=== PATIENT | female | born 1995 | race Caucasian/White ===

== ENCOUNTER 2016-12-01 00:20 | Emergency (ER) | payer MEDICAID ==
[~2016-12-01] VITALS: Ht 162.6 cm; Wt 55.0 kg
[2016-12-01 00:22] VITALS: BP 128/69; PULSE 60; RESP 12; TEMP 98.7; O2SAT 100
[2016-12-01] MEDS ORDERED: ADDE30XR PO (00:22)
--- NOTE | 2016-12-01 01:04 | PD ---
HPI Chief Complaint: Facial Pain or Swelling Time Seen by Provider: 00:42 Travel History International Travel<30 days: No Contact w/Intl Traveler<30days: No Traveled to known affect area: No History of Present Illness HPI The patient is a 21 year old female who presents to the [facility] emergency department with a history of reportedly having lip injections done for lip enhancement with lip filler by Dr. Herrera, a local surgeon, at 1:30 PM yesterday. The patient reports that at approximately 3:30 PM the swelling seemed to be getting much worse. She reports that she continue to monitor it throughout the day and the swelling was progressing, therefore she decided to come to the emergency department. She denies having any tongue or throat swelling. She denies having any chest tightness or shortness of breath. She denies having any rashes or itching. She denies having any abdominal pain or cramping. She denies ever getting lip injections previously. She denies taking any [id number] medications after the procedure. A review of systems, the patient denies any recent fevers, cough, congestion, neck pain, chest pain, shortness of breath, abdominal pain, vomiting, diarrhea, urinary symptoms, or neurologic symptoms. [facility] Past Medical History Narrative Medical The patient's past medical history is significant for attention deficit hyperactivity disorder. Medical History: Denies Significant Hx Immunizations Current: Yes ?: Not LMP: 11/17/16 Past Surgical History Narrative Surgical The patient's past surgical history is reportedly none. Surgical History: No Previous Surgery Social History Alcohol Use: No Tobacco Use: No Substance Use: No Allergies-Medications (Allergen,Severity, Reaction): Coded Allergies: No Known Allergies (Unverified , 12/01/16) Reported Meds & Prescriptions Reported Meds & Active Scripts Active Reported Adderall Xr 24 HR (Amphetamine/Dextroamphetamine) 30 Mg Cap 30 Mg PO DAILY Once daily in the morning. Review of Systems Except as stated in HPI: all other systems reviewed are Neg General / Constitutional: No: Fever Eyes: No: Visual changes HENT: Positive: Other (lip swelling), No: Headaches Cardiovascular: No: Chest Pain or Discomfort Respiratory: No: Shortness of Breath Gastrointestinal: No: Abdominal Pain Genitourinary: No: Dysuria Musculoskeletal: No: Pain Skin: No Rash Neurologic: No: Weakness Psychiatric: No: Depression Endocrine: No: Polydipsia Hematologic/Lymphatic: No: Easy Bruising Physical Exam Narrative General: The patient is a well-developed well-nourished female in no acute distress. Head and Neck exam: Head is normocephalic atraumatic. Eyes: EOMI, pupils are equal round and reactive to light. Nose: Midline septum with pink mucous membranes Mouth: The patient is noted to have swelling to the upper and lower lips. They are firm to touch, however there is no discoloration, no necrosis noted. They are pink in color. Dentition unremarkable. Moist mucus membranes. Posterior oropharynx is not erythematous. No tonsillar hypertrophy. Uvula midline. Airway patent. Neck: No palpable lymphadenopathy. No nuchal rigidity. No thyromegaly. Cardiovascular: Regular rate and rhythm without murmurs, gallops, or rubs. Lungs: Clear to auscultation bilaterally. No wheezes, rhonchi, or rales. Abdomen: Soft, without tenderness to palpation in all 4 quadrants of the abdomen. No guarding, rebound, or rigidity. Normal bowel sounds are audible. No tenderness on palpation of McBurney's point. Extremities: No clubbing, cyanosis, or edema. 2+ pulses in all 4 extremities. No calf tenderness on palpation Back: No spinous process tenderness to palpation. No costovertebral angle tenderness to palpation. Neurologic Exam: Grossly nonfocal. Skin Exam: No rash noted. Intact skin that is warm and dry. Data Data Last Documented VS Vital Signs Date Time Temp Pulse Resp B/P Pulse Ox O2 Delivery O2 Flow Rate FiO2 12/01/16 00:27 60 12 12/01/16 00:22 98.7 128/69 100 Orders Ice/Cold Pack (12/01/16 00:42) Methylprednisolone So Succ Inj (Solumedr (12/01/16 09:00) Methylprednisolone So Succ Inj (Solumedr (12/01/16 01:15) MDM Medical Decision Making Medical Screen Exam Complete: Yes Emergency Medical Condition: Yes Medical Record Reviewed: Yes Differential Diagnosis Postprocedure swelling, versus hematoma formation, versus allergic reaction Narrative Course During the course of the patients emergency department visit, the patients history, examination, and differential diagnosis were reviewed with the patient. A call was placed out to Dr. vyas he attempted to discuss the patient's case with him. He agreed with the plan to apply an ice pack to the patient's lips. He requested that the patient be given a dose of steroid IM and discharged home on a steroid taper pack. He requested that the patient follow-up with him in the office tomorrow. He requested that the patient take a picture of her lips and her current state so that he can review them tomorrow in case the swelling has completely resolved. The patient was reexamined after administration of Solu-Medrol. The patient has had no further progression of swelling. The patient has noted tongue or throat swelling. No chest tightness or shortness of breath. No wheezing on examination. The patient will be discharged home with a Medrol Dosepak taper. The patient is resting comfortably and feels better, is alert and in no distress. The patients examination findings were discussed with the patient. The repeat examination is unremarkable and benign. The history, exam, diagnostic testing, and current condition do not suggest any significant pathology to warrant further testing, continued ED treatment, admission, or surgical evaluation at this point. The vital signs have been stable. The patient does not have uncontrollable pain, intractable vomiting, or other significant symptoms. The patient's condition is stable and appropriate for discharge. The patient will pursue further outpatient evaluation with a primary care physician or other designated or consulting physician as indicated in the discharge instructions. The patient expressed understanding and was agreeable with this plan. Physician Communication Physician Communication I spoke to Dr. Herrera at 1 AM. Medrol dose pack. Follow up tomorrow in the office. Diagnosis Primary Impression: Swelling of both lips Referrals: Art Herrera MD 1 day Med/Other Pt SpecificInfo: Prescription(s) given Scripts Methylprednisolone Dosepak (Medrol Dosepak)4 Mg Dspk4 Mg PO DIRECTED #1 DSPK Ref 0 Per Pharmacist direction Prov:Chikis Calvin MD 12/01/16 Disposition: DISCHARGE HOME Condition: Stable Chikis Calvin MD Dec 01, 2016 01:03
[2016-12-01] MEDS ORDERED: methylPREDNISolone SOD SUCC 40 MG/1 ML VIAL IM ONE (01:15)
[2016-12-01] MEDS ORDERED: MEDR4PAK PO (02:28)
[2016-12-01] MEDS ORDERED: methylPREDNISolone SOD SUCC 40 MG/1 ML VIAL IM SCH (09:00)
== END 2016-12-01 03:16 | disposition home or self-care (01) ==
LOC: NEPC 00:20
DX: R22.0 Localized swelling, mass and lump, head (principal)
CPT/HCPCS: 96372; 99283; J2920

== ENCOUNTER 2016-12-25 02:08 | Emergency (ER) | payer MEDICAID ==
[~2016-12-25] VITALS: Ht 167.6 cm; Wt 55.0 kg
[~2016-12-25 02:08] MED LIST: ADDE30XR PO; MEDR4PAK PO
[2016-12-25 02:12] VITALS: BP 109/73; PULSE 78; RESP 15; TEMP 98.1; O2SAT 98
--- NOTE | 2016-12-25 02:23 | PD ---
HPI Chief Complaint: Bite or Sting Time Seen by Provider: 02:23 Travel History International Travel<30 days: No Contact w/Intl Traveler<30days: No Traveled to known affect area: No History of Present Illness HPI 21-year-old female with no significant medical history presents to emergency department for evaluation of insect bites. Patient states that she is staying in a cheap motel and has noticed insect bites on her skin. She states that they are itching. She has not been able to visualize any bugs but is fearful is maybe bedbugs. She was like us to tell her what exactly they are. Denies any other new exposures. No recent illnesses, fever, chills. She has no other symptoms to report. History Past Medical Histgory Medical History: Denies Significant Hx Social History Alcohol Use: No Tobacco Use: No Allergies-Medications (Allergen,Severity, Reaction): Coded Allergies: No Known Allergies (Unverified , 12/25/16) Reported Meds & Prescriptions Reported Meds & Active Scripts Active Medrol Dosepak (Methylprednisolone) 4 Mg Dspk 4 Mg PO DIRECTED Per Pharmacist direction Reported Adderall Xr 24 HR (Amphetamine/Dextroamphetamine) 30 Mg Cap 30 Mg PO DAILY Once daily in the morning. Review of Systems Except as stated in HPI: all other systems reviewed are Neg Physical Exam Narrative GENERAL: Well-nourished, well-developed female patient in no acute distress SKIN: Focused skin assessment warm/dry. There are scattered papular mildly erythematous lesions on the extremities. Mild excoriation where she has scratched them. No pustular or vesicle formation. HEAD: Normocephalic. EYES: No scleral icterus. No injection or drainage. NECK: Supple, trachea midline. No JVD or lymphadenopathy. CARDIOVASCULAR: Regular rate and rhythm without murmurs, gallops, or rubs. RESPIRATORY: Breath sounds equal bilaterally. No accessory muscle use. MUSCULOSKELETAL: No cyanosis, or edema. BACK: Nontender without obvious deformity. No CVA tenderness. Data Data Last Documented VS Vital Signs Date Time Temp Pulse Resp B/P Pulse Ox O2 Delivery O2 Flow Rate FiO2 12/25/16 02:12 98.1 78 15 109/73 98 Room Air MDM Medical Screen Exam Complete: Yes Emergency Medical Condition: No Differential Diagnosis BED BUG BITES Narrative Course 21 year-old female presents to the emergency room department for evaluation. Patient history and physical findings are consistent with bedbug bites, however he told patient I am unable to confirm this. She is encouraged to proceed with treatment of her space as if they were bedbugs. At this time there are no urgent or emergent needs for medical intervention identified. A medical screening exam was performed: At the time of evaluation the presenting medical condition was determined not to be of an emergent nature. The patient was given the option of receiving additional care, but declined. Patient was given options for additional community resources from which to obtain care. The Patient Has Been advised to seek medical attention for their presenting complaint. The patient has been advised to return to the ER at any time if an emergent condition develops. Primary Impression: Bed bug bite Qualified Code: W57.XXXA - Bed bug bite, initial encounter Additional Impression: Encounter for medical screening examination Condition: Orquidea Chirinos December 25, 2016 02:23
== END 2016-12-25 02:20 | disposition left against medical advice (07) ==
LOC: NEPK 02:08
DX: L29.9 Pruritus, unspecified (principal)
CPT/HCPCS: 99281

== ENCOUNTER 2017-04-01 12:21 | Emergency (ER) | payer MEDICAID, OTHER ==
[~2017-04-01] VITALS: Ht 162.6 cm; Wt 56.5 kg
[2017-04-01 12:22] VITALS: BP 109/65; PULSE 103; RESP 20; TEMP 98.2; O2SAT 100
[2017-04-01] MEDS ORDERED: AUGM875T3 PO (12:36)
--- NOTE | 2017-04-01 12:37 | PD ---
HPI . sore throat x 2 weeks and head congestion Chief Complaint: ENT Complaint Time Seen by Provider: 12:30 Travel History International Travel<30 days: No Contact w/Intl Traveler<30days: No Traveled to known affect area: No History of Present Illness HPI 21-year-old female here with complaints of sore throat for 2 weeks and had congestion. Patient tells me that she's had a sore throat for 2 weeks and was initially thinking she may have had strep throat. She does admit to having cold symptoms and some head congestion for the past several weeks as well. She says her symptoms are not improving and she decided to come into the ED for further evaluation. She denies any fever or chills. 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 She doesn't have any symptoms at this time other than what is stated above. PFSH Past Medical History Immunizations Current: Yes ?: Not LMP: 1 month ago Social History Alcohol Use: No Tobacco Use: No Substance Use: No Allergies-Medications (Allergen,Severity, Reaction): Coded Allergies: No Known Allergies (Unverified , 04/01/17) Reported Meds & Prescriptions Reported Meds & Active Scripts Active Augmentin (Amoxicillin-Clavulanate) 875-125 Mg Tab 1 Tab PO BID 10 Days Medrol Dosepak (Methylprednisolone) 4 Mg Dspk 4 Mg PO DIRECTED Per Pharmacist direction Reported Adderall Xr 24 HR (Amphetamine/Dextroamphetamine) 30 Mg Cap 30 Mg PO DAILY Once daily in the morning. Review of Systems General / Constitutional: No: Fever Eyes: No: Visual changes HENT: Positive: Sore Throat, Congestion, No: Headaches Cardiovascular: No: Chest Pain or Discomfort Respiratory: No: Shortness of Breath Gastrointestinal: No: Abdominal Pain Genitourinary: No: Dysuria Musculoskeletal: No: Pain Skin: No Rash Neurologic: No: Weakness Psychiatric: No: Depression Endocrine: No: Polydipsia Hematologic/Lymphatic: No: Easy Bruising Physical Exam Narrative GENERAL: AAO x 3, no acute distress, Well-nourished, well-developed patient. SKIN: Warm and dry. No visible rashes or bruising. HEAD: Normocephalic and atraumatic. EYES: No scleral icterus. No injection or drainage. EOM intact, PERRLA ENT: No nasal drainage noted. Mucous membranes pink. Airway patent. Moderate posterior pharynx erythema without edema or exudate. Uvula is midline NECK: Supple, trachea midline. No JVD. CARDIOVASCULAR: Regular rate and rhythm without murmurs, gallops, or rubs. RESPIRATORY: Breath sounds equal bilaterally. No accessory muscle use. No rhonchi or rales. GASTROINTESTINAL: visual inspection normal EXTREMITIES: No cyanosis or edema. BACK: No obvious deformity. NEURO: CN II-12 intact, sole sewer hand strength normal b/l, UE and LE 5/5, no focal deficits PSYCH: AAO x 3, normal affect. Data Data Last Documented VS Vital Signs Date Time Temp Pulse Resp B/P Pulse Ox O2 Delivery O2 Flow Rate FiO2 04/01/17 12:22 98.2 103 20 109/65 100 Room Air MDM Medical Decision Making Medical Screen Exam Complete: Yes Emergency Medical Condition: Yes Medical Record Reviewed: Yes Differential Diagnosis Acute pharyngitis, acute sinusitis, less likely infectious mononucleosis Narrative Course 21-year-old female here with complaints of sore throat. On examination she has an acute pharyngitis. It doesn't exactly resemble strep, but there is a possibility. I will go ahead and treat her with Augmentin. In regards to her high risk sexual behaviors, I recommend she go for STD screening at the health department or with her primary care provider. I advised her that I cannot screen in the emergency department. Patient verbalized understanding of instructions, questions were answered, and thanked me for their care. I advised them if their condition worsens, please return to the nearest emergency room for further care. Diagnosis Primary Impression: Acute pharyngitis Qualified Code: J02.9 - Acute pharyngitis, unspecified etiology Patient Instructions: General Instructions Additional Instructions: Please follow-up with the help department for STD testing as we discussed. Please return to emergency department if your symptoms return or worsen. Follow up with your primary care provider. Take medications as prescribed. Take medications as prescribed. Try salt water gargles. Do not share utensils, toothbrush, etc. If you develop difficulty breathing, please go to the nearest emergency room. Med/Other Pt SpecificInfo: Prescription(s) given Scripts Amoxicillin-Clavulanate (Augmentin)875-125 Mg Tab1 Tab PO BID 10 Days Prov:Highet,Ijeoma H. MD 04/01/17 Disposition: 01 DISCHARGE HOME Condition: Stable Tara Plata Apr 01, 2017 12:36
== END 2017-04-01 12:57 | disposition home or self-care (01) ==
LOC: NEPK 12:21
DX: J02.9 Acute pharyngitis, unspecified (principal); Z72.51 High risk heterosexual behavior
CPT/HCPCS: 99283

== ENCOUNTER 2017-06-17 12:15 | Emergency (ER) | payer MEDICAID ==
[~2017-06-17] VITALS: Ht 162.6 cm; Wt 54.5 kg
[~2017-06-17 12:15] MED LIST changes: +AUGM875T3 PO
[2017-06-17 12:27] VITALS: BP 144/79; PULSE 89; RESP 16; O2SAT 99
--- NOTE | 2017-06-17 12:53 | PD ---
HPI Chief Complaint: GI Complaint Time Seen by Provider: 12:33 Travel History International Travel<30 days: No Contact w/Intl Traveler<30days: No Traveled to known affect area: No History of Present Illness HPI The patient was seen and examined in the presence of the nurse. This patient complains of constipation. She hasn't had a satisfying bowel movement in 2 weeks she says. She admits to history of anorexia. She denies any abdominal pain or fever. No vomiting that she has not self-induced. Denies suicidal ideation. Symptoms severity is mild. PFSH Past Medical History Gastrointestinal Disorders: Yes (bulemia) Immunizations Current: Yes ?: Unknown LMP: 05/06/17 Social History Alcohol Use: No Tobacco Use: No Substance Use: No Allergies-Medications (Allergen,Severity, Reaction): Coded Allergies: No Known Allergies (Unverified , 06/17/17) Reported Meds & Prescriptions Reported Meds & Active Scripts Active No Active Prescriptions or Reported Medications Review of Systems HENT: No: Headaches Cardiovascular: No: Chest Pain or Discomfort Respiratory: No: Shortness of Breath Physical Exam Narrative GASTROINTESTINAL: Abdomen soft, non-tender, nondistended. Positive bowel sounds. No hepato-splenomegaly, or palpable masses. No guarding. SKIN: Focused skin assessment reveals no rash or ulcers. Skin is warm and dry. Palpation shows no induration or nodules. Data Data Last Documented VS Vital Signs Date Time Temp Pulse Resp B/P (MAP) Pulse Ox O2 Delivery O2 Flow Rate FiO2 06/17/17 12:30 16 06/17/17 12:27 89 144/79 (100) 99 MDM Medical Decision Making Medical Screen Exam Complete: Yes Emergency Medical Condition: Yes Medical Record Reviewed: Yes Differential Diagnosis Constipation, ileus, obstruction Narrative Course I have reviewed the patient's electronic medical record. Patient has a benign soft nontender abdomen I don't have any clinical suspicion of mechanical obstruction I don't think emergent imaging is indicated Recommend she start with primary care follow-up Can take daily fiber supplement and consider one-time dose of magnesium citrate Diagnosis Primary Impression: Constipation Qualified Codes: K59.00 - Constipation, unspecified Additional Instructions: The patient was advised to follow up with their physician and return if they worsen. Med/Other Pt SpecificInfo: Other Scripts No Active Prescriptions or Reported Meds Disposition: 01 DISCHARGE HOME Condition: Stable Kocisko,Efrain J. MD Jun 17, 2017 12:53
== END 2017-06-17 12:58 | disposition home or self-care (01) ==
LOC: NEPD 12:15
DX: K59.00 Constipation, unspecified (principal)
CPT/HCPCS: 99282